=== PATIENT | female | born 1950 | race Caucasian/White ===

== ENCOUNTER 2022-11-26 12:00 | Inpatient (IN) | payer MEDICAID ==
[~2022-11-26] VITALS: Ht 152.4 cm; Wt 51.7 kg
[2022-11-26 12:09] VITALS: BP 146/85; PULSE 87; RESP 20; TEMP 98.2; O2SAT 97
[2022-11-26 13:19] LABS: BASOPHILS % (AUTO) 0.6 % (0.0-2.0); EOSINOPHILS % (AUTO) 0.2 % (0.0-4.0); HEMATOCRIT 37.3 % (36-48); HEMOGLOBIN 12.6 g/dL (12.0-16.0); LYMPHOCYTES # (AUTO) 0.9 K/uL (2.5-16.5); LYMPHOCYTES % (AUTO) 13.6 % (20.5-51.1); MEAN CORPUSCULAR HEMOGLOBIN 30 pg (27-31); MEAN CORPUSCULAR HGB CONC 34 g/dL (33-37); MEAN CORPUSCULAR VOLUME 89.6 fL (80-94); MONOCYTES # (AUTO) 0.4 K/uL (0.8-1.0); MONOCYTES % (AUTO) 6.6 % (1.7-9.3); NEUTROPHILS # (AUTO) 5.2 K/uL (1.8-7.7); PLATELET COUNT (AUTO) 213 K/uL (140-450); RED BLOOD CELL COUNT(AUTO) 4.17 MIL/uL (4.20-5.40); RED CELL DISTRIBUTION WIDTH 13.1 % (11.6-13.7); WHITE BLOOD COUNT (AUTO) 6.6 K/uL (4.8-10.8)
[2022-11-26 13:42] LABS: ALANINE AMINOTRANSFERASE 21 U/L (12-78); ALBUMIN 3.4 g/dL (3.4-5.0); ALKALINE PHOSPHATASE 87 U/L (50-136); ANION GAP 13.6 (8-16); ASPARTATE AMINOTRANSFERASE 24 U/L (15-37); CALCIUM 8.6 mg/dL (8.5-10.1); CARBON DIOXIDE 26.1 mmol/L (21-32); CHLORIDE 106 mmol/L (98-107); CREATININE 0.8 mg/dL (0.6-1.3); GLUCOSE 96 mg/dL (74-106); MAGNESIUM 2.2 mg/dL (1.8-2.4); PHOSPHORUS 3.8 mg/dL (2.5-4.9); POTASSIUM 3.7 mmol/L (3.5-5.1); SODIUM SERUM 142 mmol/L (136-145); TOTAL BILIRUBIN 0.5 mg/dL (0.0-1.0); TOTAL PROTEIN, SERUM 7.3 g/dL (6.4-8.2); UREA NITROGEN, BLOOD 10 mg/dL (7-18)
[2022-11-26 14:06] LABS: FREE T4 (FREE THYROXINE) 1.09 ng/dL (0.76-1.46); THYROID STIMULATING HORMONE 2.32 uIU/mL (0.34-3.74)
[2022-11-26 15:04] LABS: APPEARANCE,URINE CLEAR (CLEAR); BILIRUBIN,URINE NEGATIVE (NEGATIVE); BLOOD, URINE 3+ (NEGATIVE); COLOR,URINE YELLOW (YELLOW); LEUKOCYTE ESTERASE ,URINE NEGATIVE (NEGATIVE); NITRITE, URINE NEGATIVE (NEGATIVE); PROTEIN,URINE NEGATIVE (NEGATIVE); UGLUCOSE NEGATIVE (NEGATIVE); UROBILINOGEN,URINE 0.2 EU/dL (0.2 - 1)
[2022-11-26 15:20] LABS: BACTERIA,URINE FEW /HPF (None Seen); RBC,URINE 11-20 (MOD) /HPF (0-5); WBC,URINE 0-5 /HPF (0-5)
[2022-11-26 15:21] LABS: MUCUS,URINE 2+ /LPF (None Seen); SQUAMOUS EPITHELIAL CELL,UR 4-10 (MOD) /LPF (0-3 (FEW)); TRICHOMONAS,URINE None Seen /HPF (None Seen); YEAST,URINE None Seen /HPF (None Seen)
[2022-11-26] MEDS ORDERED: CLOPIDOGREL 75 MG TAB PO ONE (16:15)
[2022-11-26] MEDS ORDERED: ASPIRIN 81 MG TAB.CHEW PO ONE (16:15)
[2022-11-26] MEDS ORDERED: ASPIRIN 81 MG TAB.CHEW ONE (17:19)
[2022-11-26] MEDS ORDERED: CLOPIDOGREL 75 MG TAB ONE (17:20)
[2022-11-26 22:40] VITALS: PULSE 80; RESP 18; O2SAT 96
[2022-11-27] VITALS: BP 142/69; PULSE 72; PULSE 80; RESP 18; O2SAT 98
[2022-11-27] MEDS ORDERED: ACETAMINOPHEN EXTRA STRENGTH 500 MG TAB PO PRN (00:10)
[2022-11-27 04:00] VITALS: BP 113/52; PULSE 62; PULSE 63; RESP 16; TEMP 97.5; O2SAT 99
[2022-11-27 08:00] VITALS: BP 124/73; PULSE 60; RESP 18; TEMP 98.3; O2SAT 98
[2022-11-27] MEDS: ATORVASTATIN 80 MG TAB PO SCH (08:09)
[2022-11-27] MEDS: ASPIRIN 81 MG TAB.CHEW PO SCH (08:10)
[2022-11-27 08:56] LABS: CHOL/HDL RATIO 2.4 (1-4.5)
[2022-11-27] MEDS ORDERED: MAG SULF 2000 MG/WATER PREMIX 50 ML IV PRN (09:00)
[2022-11-27] MEDS: CYANOCOBALAMIN 100 MCG TAB PO SCH (09:35)
[2022-11-27] MEDS: FOLIC ACID 1 MG TAB PO SCH (09:35)
[2022-11-27 12:00] VITALS: BP 113/56; PULSE 74; PULSE 80; RESP 18; TEMP 97.8; O2SAT 96
[2022-11-27] MEDS ORDERED: ONDANSETRON 4 MG/2 ML VIAL IVP PRN (15:55)
[2022-11-27] MEDS ORDERED: MORPHINE SULFATE 2 MG/ML SYR IVP PRN (15:55)
[2022-11-27] MEDS ORDERED: ACETAMINOPHEN 325 MG TAB PO PRN (15:55)
[2022-11-27] MEDS ORDERED: DOCUSATE SODIUM 100 MG GELCAP PO PRN (15:55)
[2022-11-27] MEDS ORDERED: POTASSIUM CHLORIDE 10 MEQ TABER PO PRN (15:55)
[2022-11-27] MEDS ORDERED: LORazepam 2 MG/ML VIAL IVP PRN (15:55)
[2022-11-27 16:00] VITALS: BP 140/77; PULSE 78; PULSE 99; RESP 18; TEMP 98.1; O2SAT 97
[2022-11-27] MEDS ORDERED: ATORVASTATIN 80 MG TAB PO SCH (16:00)
[2022-11-27] MEDS: CLOPIDOGREL 75 MG TAB PO SCH (16:58)
[2022-11-27 20:00] VITALS: BP 134/68; PULSE 85; PULSE 96; RESP 18; TEMP 98.1; O2SAT 98
[2022-11-28] VITALS: BP 104/68; PULSE 64; PULSE 71; RESP 18; TEMP 97.5; O2SAT 99
[2022-11-28 04:00] VITALS: BP 133/60; PULSE 60; PULSE 61; RESP 18; TEMP 97.8; O2SAT 99
[2022-11-28 06:34] LABS: ANION GAP 11.5 (8-16); BASOPHILS % (AUTO) 0.7 % (0.0-2.0); CALCIUM 8.3 mg/dL (8.5-10.1); CARBON DIOXIDE 26.6 mmol/L (21-32); CHLORIDE 105 mmol/L (98-107); CREATININE 0.8 mg/dL (0.6-1.3); EOSINOPHILS # (AUTO) 0.1 K/uL (0-0.4); EOSINOPHILS % (AUTO) 1.4 % (0.0-4.0); GLUCOSE 90 mg/dL (74-106); HEMATOCRIT 35.2 % (36-48); HEMOGLOBIN 11.9 g/dL (12.0-16.0); LYMPHOCYTES % (AUTO) 27.4 % (20.5-51.1); MEAN CORPUSCULAR HEMOGLOBIN 30 pg (27-31); MEAN CORPUSCULAR HGB CONC 34 g/dL (33-37); MEAN CORPUSCULAR VOLUME 89.4 fL (80-94); MONOCYTES # (AUTO) 0.4 K/uL (0.8-1.0); MONOCYTES % (AUTO) 10.4 % (1.7-9.3); NEUTROPHILS # (AUTO) 2.3 K/uL (1.8-7.7); NEUTROPHILS % (AUTO) 60.1 % (42.2-75.2); PLATELET COUNT (AUTO) 218 K/uL (140-450); POTASSIUM 4.1 mmol/L (3.5-5.1); RED BLOOD CELL COUNT(AUTO) 3.94 MIL/uL (4.20-5.40); RED CELL DISTRIBUTION WIDTH 12.9 % (11.6-13.7); SODIUM SERUM 139 mmol/L (136-145); UREA NITROGEN, BLOOD 20 mg/dL (7-18); WHITE BLOOD COUNT (AUTO) 3.8 K/uL (4.8-10.8)
[2022-11-28 08:00] VITALS: BP 129/72; PULSE 65; PULSE 77; RESP 18; TEMP 96.9; O2SAT 98
[2022-11-28 08:07] LABS: FOLIC ACID > 20.00 ng/mL (>3.0)
[2022-11-28] MEDS: ASPIRIN 81 MG TAB.CHEW PO SCH (08:45)
[2022-11-28] MEDS: CYANOCOBALAMIN 100 MCG TAB PO SCH (08:45)
[2022-11-28] MEDS: ATORVASTATIN 80 MG TAB PO SCH (08:45)
[2022-11-28] MEDS: CLOPIDOGREL 75 MG TAB PO SCH (08:46)
[2022-11-28] MEDS: FOLIC ACID 1 MG TAB PO SCH (08:46)
[2022-11-28 12:00] VITALS: BP 141/53; PULSE 74; PULSE 77; RESP 18; TEMP 97; O2SAT 98
[2022-11-28 16:00] VITALS: BP 127/64; PULSE 70; PULSE 74; RESP 18; TEMP 97.4; O2SAT 98
[2022-11-28 20:00] VITALS: BP 133/56; PULSE 67; PULSE 80; RESP 17; RESP 18; TEMP 97; O2SAT 98
[2022-11-29] VITALS (8 sets, daily range): BP systolic 123–153; BP diastolic 54–73; PULSE 51–83; RESP 17–20; TEMP 97.1–98.1; O2SAT 98–99
[2022-11-29 06:28] LABS: EOSINOPHILS % (AUTO) 1.6 % (0.0-4.0); HEMATOCRIT 35.6 % (36-48); HEMOGLOBIN 12.1 g/dL (12.0-16.0); LYMPHOCYTES # (AUTO) 1.3 K/uL (2.5-16.5); MEAN CORPUSCULAR HEMOGLOBIN 30 pg (27-31); MEAN CORPUSCULAR HGB CONC 34 g/dL (33-37); MEAN CORPUSCULAR VOLUME 89.6 fL (80-94); MONOCYTES # (AUTO) 0.3 K/uL (0.8-1.0); MONOCYTES % (AUTO) 11.5 % (1.7-9.3); NEUTROPHILS # (AUTO) 1.3 K/uL (1.8-7.7); NEUTROPHILS % (AUTO) 43.9 % (42.2-75.2); PLATELET COUNT (AUTO) 232 K/uL (140-450); RED BLOOD CELL COUNT(AUTO) 3.97 MIL/uL (4.20-5.40); RED CELL DISTRIBUTION WIDTH 12.9 % (11.6-13.7)
[2022-11-29 06:32] LABS: ANION GAP 9.2 (8-16); CALCIUM 8.5 mg/dL (8.5-10.1); CHLORIDE 107 mmol/L (98-107); CREATININE 0.7 mg/dL (0.6-1.3); GLUCOSE 89 mg/dL (74-106); POTASSIUM 4.2 mmol/L (3.5-5.1); SODIUM SERUM 141 mmol/L (136-145); UREA NITROGEN, BLOOD 17 mg/dL (7-18)
[2022-11-29] MEDS: ATORVASTATIN 80 MG TAB PO SCH (09:35)
[2022-11-29] MEDS: ASPIRIN 81 MG TAB.CHEW PO SCH (09:35)
[2022-11-29] MEDS: FOLIC ACID 1 MG TAB PO SCH (09:35)
[2022-11-29] MEDS: CLOPIDOGREL 75 MG TAB PO SCH (09:35)
[2022-11-29] MEDS: CYANOCOBALAMIN 100 MCG TAB PO SCH (09:36)
[2022-11-29] MEDS ORDERED: LIP80 PO (18:10)
[2022-11-29] MEDS ORDERED: CLOP75TA55 PO (18:10)
[2022-11-29] MEDS ORDERED: ASPI81CT95 PO (18:10)
== END 2022-11-29 18:55 | disposition home or self-care (01) | DRG 45 ==
LOC: MED 12:00 → MTU 18:04
PROVIDERS: ADMIT Family Medicine; ATTEND Family Medicine
DX: I63.81 Other cerebral infarction due to occlusion or stenosis of small artery (principal); E44.1 Mild protein-calorie malnutrition; D63.8 Anemia in other chronic diseases classified elsewhere; I10 Essential (primary) hypertension; R20.2 Paresthesia of skin; E03.9 Hypothyroidism, unspecified; M51.36 Other intervertebral disc degeneration, lumbar region; M47.816 Spondylosis without myelopathy or radiculopathy, lumbar region; M54.32 Sciatica, left side; Z88.1 Allergy status to other antibiotic agents; Z88.0 Allergy status to penicillin; Z88.2 Allergy status to sulfonamides; Z90.49 Acquired absence of other specified parts of digestive tract; Z68.28 Body mass index [BMI] 28.0-28.9, adult
CPT/HCPCS: 36415; 70450; 72110; 80048; 80053; 81001; 82607; 82746; 82948; 83036; 83735; 84100; 84439; 84443; 84484; 85025; 85651; 86038; 86140; 87081; 97116; 97165-GO; 97530; 99285; J1644; Q9967